=== PATIENT | male | born 1960 | race Caucasian/White ===

== ENCOUNTER 2017-07-11 10:49 | Emergency (ER) | payer MEDICARE, OTHER ==
[~2017-07-11] VITALS: Ht 162.6 cm; Wt 60.8 kg
[2017-07-11] MEDS ORDERED: ROBAXIN-750750 MG PO (11:40)
[2017-07-11] MEDS ORDERED: NORCO 5-325 TA1 EACH PO (11:40)
[2017-07-11] MEDS ORDERED: ACETAMINOPHEN500 M4 PO (11:45)
[2017-07-11] MEDS ORDERED: ACETAMINOPHEN-1 EAC1 PO (11:45)
[2017-07-11] MEDS ORDERED: ASPIRIN325 MG PO (11:46)
[2017-07-11] MEDS ORDERED: ALENDRONATE SOD70 MG PO (11:46)
[2017-07-11] MEDS ORDERED: LIPITOR20 MG PO (11:47)
[2017-07-11] MEDS ORDERED: CELLCEPT250 MG PO (11:48)
[2017-07-11] MEDS ORDERED: VITAMIN D32000 UNIT PO (11:48)
[2017-07-11] MEDS ORDERED: COLACE100 MG PO (11:49)
[2017-07-11] MEDS ORDERED: PLAVIX75 MG PO (11:49)
[2017-07-11] MEDS ORDERED: GLUCAGON EMERGEN1 MG INJ (11:50)
[2017-07-11] MEDS ORDERED: HUMALOG100 UNIT/1 SUB-Q (11:50)
[2017-07-11] MEDS ORDERED: GABAPENTIN300 MG PO (11:50)
[2017-07-11] MEDS ORDERED: IMODIUM A-D2 M2 PO (11:51)
[2017-07-11] MEDS ORDERED: LANTUS100 UNITS/ SUB-Q (11:51)
[2017-07-11] MEDS ORDERED: LEVOTHYROXINE200 MCG PO (11:51)
[2017-07-11] MEDS ORDERED: LOSARTAN POTASS50 MG PO (11:52)
[2017-07-11] MEDS ORDERED: PHOSPHA 250 NE250 MG PO (11:53)
[2017-07-11] MEDS ORDERED: ONCE DAILY1 EACH PO (11:53)
[2017-07-11] MEDS ORDERED: TACROLIMUS1 MG PO (11:54)
[2017-07-11] MEDS ORDERED: RANITIDINE HCL150 M1 PO (11:54)
[2017-07-11] MEDS ORDERED: PREDNISONE20 MG PO (11:54)
[2017-07-11] MEDS ORDERED: TOLTERODINE TART4 MG PO (11:55)
[2017-07-11] MEDS ORDERED: TAMIFLU75 MG PO (11:55)
[2017-07-11] MEDS ORDERED: TOPROL XL50 MG PO (11:56)
[2017-07-11] MEDS ORDERED: CYMBALTA60 MG PO (11:57)
[2017-07-11] MEDS ORDERED: VITAMIN E400 UNI5 PO (11:57)
[2017-07-11] MEDS ORDERED: VITAMIN C500 M2 PO (11:57)
[2017-07-11] MEDS ORDERED: PERCOCET 5-3251 EACH PO (11:58)
[2017-07-11] MEDS ORDERED: OXYCONTIN15 MG PO (11:58)
== END 2017-07-11 12:20 | disposition home or self-care (01) ==
LOC: ED 10:49
DX: S39.012A Strain of muscle, fascia and tendon of lower back, initial encounter (principal); W01.0XXA Fall on same level from slipping, tripping and stumbling without subsequent striking against object, initial encounter; Y93.89 Activity, other specified
CPT/HCPCS: 72100; 99283

== ENCOUNTER 2018-09-05 12:12 | Emergency (ER) | payer MEDICARE, OTHER ==
[~2018-09-05] VITALS: Ht 162.6 cm; Wt 60.8 kg
[~2018-09-05 12:12] MED LIST: ACETAMINOPHEN-1 EAC1 PO; ACETAMINOPHEN500 M4 PO; ALENDRONATE SOD70 MG PO; ASPIRIN325 MG PO; CELLCEPT250 MG PO; COLACE100 MG PO; CYMBALTA60 MG PO; GABAPENTIN300 MG PO; GLUCAGON EMERGEN1 MG INJ; HUMALOG100 UNIT/1 SUB-Q; IMODIUM A-D2 M2 PO; LANTUS100 UNITS/ SUB-Q; LEVOTHYROXINE200 MCG PO; LIPITOR20 MG PO; LOSARTAN POTASS50 MG PO; NORCO 5-325 TA1 EACH PO; ONCE DAILY1 EACH PO; OXYCONTIN15 MG PO; PERCOCET 5-3251 EACH PO; PHOSPHA 250 NE250 MG PO; PLAVIX75 MG PO; PREDNISONE20 MG PO; RANITIDINE HCL150 M1 PO; ROBAXIN-750750 MG PO; TACROLIMUS1 MG PO; TAMIFLU75 MG PO; TOLTERODINE TART4 MG PO; TOPROL XL50 MG PO; VITAMIN C500 M2 PO; VITAMIN D32000 UNIT PO; VITAMIN E400 UNI5 PO
--- OUTSIDE RECORDS SUMMARY | 2018-09-05 12:16 | XMS ---
PreManage Notification: KRISTEL NUÑEZ Security Actuary Events No recent Security Events currently on file CRITERIA MET - [facility] - 2 Visits in 30 Days CARE PROVIDERS Annemarie Donohue MD Family [facility] Current PHONE: Unknown ANNEMARIE DONOHUE Primary Care Current PHONE: Unknown Annemarie Donohue MD Primary Care Current PHONE: Unknown Jessica has no Care Guidelines for this patient. [place] VISIT COUNT (12 MO.) 1 Robby Jerome [address] [place] [id number] MY [place] TOTAL 5 NOTE: Visits indicate total known visits. ED/UCC VISIT TRACKING (12 MO.) 09/05/2018 12:13 [facility] [place] TYPE: Emergency COMPLAINT: - DIABETIC PROBLEM 08/12/2018 22:54 [facility] [place] TYPE: Emergency COMPLAINT: - DIABETES FOOT/ NEUROPHATHY, EPISODE OF HYPOGLYCEMIA, CHRONIC KIDNEY DISEASE 07/19/2018 17:57 [facility] [place] TYPE: Emergency COMPLAINT: - R FOOT CELLULITS DIAGNOSES: - Unqualified visual loss, right eye, normal vision left eye - Type 1 diabetes mellitus with diabetic neuropathy, unspecified - Presence of insulin pump (external) (internal) - Type 1 diabetes mellitus with diabetic chronic kidney disease - Presence of insulin pump (external) (internal) - Kidney transplant status - Cellulitis of right lower limb - Acquired absence of left leg above knee - Unqualified visual loss, right eye, normal vision left eye - Type 1 diabetes mellitus with diabetic chronic kidney disease - 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 - Kidney transplant status - Cellulitis of right lower limb - 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 - Type 1 diabetes mellitus with diabetic neuropathy, unspecified - Acquired absence of left leg above knee 01/25/2018 01:08 [facility] [place] TYPE: Emergency COMPLAINT: - LOW BLOOD SUGAR DIAGNOSES: - Type 1 diabetes mellitus with hypoglycemia without coma - Kidney transplant status - Type 1 diabetes mellitus with hypoglycemia without coma - Other mechanical complication of insulin pump, initial encounter 12/29/2017 14:52 [facility] [place] TYPE: Emergency DIAGNOSES: - Elevated white blood cell count, unspecified - MD REF - Bronchitis, not specified as acute or chronic - Acute cystitis without hematuria INPATIENT VISIT TRACKING (12 MO.) 01/25/2018 01:15 [facility] [place] TYPE: Intensive Care COMPLAINT: - HYPOGLYCEMIA DIAGNOSES: - Somnolence - Other mechanical complication of insulin pump, initial encounter - Kidney transplant status - Type 1 diabetes mellitus with hypoglycemia without coma - Type 1 diabetes mellitus with hypoglycemia without coma [email or web address]
== END 2018-09-05 13:27 | disposition home or self-care (01) ==
LOC: ED 12:12
DX: E10.649 Type 1 diabetes mellitus with hypoglycemia without coma (principal); E03.9 Hypothyroidism, unspecified; E78.5 Hyperlipidemia, unspecified; D64.9 Anemia, unspecified; Z79.899 Other long term (current) drug therapy; Z79.82 Long term (current) use of aspirin; Z79.4 Long term (current) use of insulin; Z79.52 Long term (current) use of systemic steroids
CPT/HCPCS: 99283